=== PATIENT | female | born 1995 | race American Indian/Alaskan Native ===

== ENCOUNTER 2019-10-20 10:39 | Emergency (ER) | payer SELFPAY ==
[2019-10-20 11:54] LABS: Basophils % (Auto) 0.2 % (0.0-1.8); Eosinophils % (Auto) 0.3 % (0.0-4.3); Hematocrit 43.9 % (30.3-42.9); Hemoglobin 14.5 gm/dl (10.1-14.3); Lymphocytes # (Auto) 2.9 K/mm3 (1.2-5.4); Lymphocytes % (Auto) 33.9 % (13.4-35.0); Mean Corpuscular HGB Conc 33 % (30-34); Mean Corpuscular Volume 90 fl (79-97); Monocytes # (Auto) 0.5 K/mm3 (0.0-0.8); Monocytes % (Auto) 5.9 % (0.0-7.3); Platelet Count 258 K/mm3 (140-440); Red Blood Count 4.86 M/mm3 (3.65-5.03); Red Cell Distribution Width 13.5 % (13.2-15.2)
[2019-10-20 12:07] LABS: Bilirubin,Urine NEG (Negative); Blood,Urine SM (Negative); Color,Urine Yellow (Yellow); Mucus,Urine 3+ /HPF
[2019-10-20 12:13] LABS: Alanine Aminotransferase 11 units/L (7-56); Albumin 4.6 g/dL (3.9-5); BUN/Creatinine Ratio 11; Blood Urea Nitrogen 10 mg/dL (7-17); Calcium 9.6 mg/dL (8.4-10.2); Hemolysis Index 3
[2019-10-20] MEDS ORDERED: ONDANSETRON 4 MG/2 ML INJ IV ONE (15:27)
--- NOTE | 2019-10-20 15:27 | Emergency Department Report ---
ED Abdominal Pain HPI - General Chief Complaint: Nausea/Vomiting/Diarrhea Stated Complaint: VOMITTING Time Seen by Provider: 10/20/19 15:21 Source: patient Mode of arrival: Ambulatory Limitations: No Limitations - History of Present Illness Initial Comments: 24-year-old -[place] female presents to the emergency room complaining of right lower quadrant pain with nausea vomiting having sweats and decreased appetite. Patient reports that she is drinking well denies any dysuria denies any vaginal discharge denies any vaginal bleeding. Patient states making worse is nothing making better is nothing. Patient's last menstrual period was 020. Patient does not have a primary care provider. Denies any past medical history currently takes no medications on a daily basis and has no known drug allergies. MD Complaint: abdominal pain Onset/Timin Location: RLQ Radiation: none Migration to: no migration Severity scale (0 -10): 8 Quality: aching Consistency: intermittent Improves With: nothing Worsens With: nothing Associated Symptoms: nausea, vomiting, fever - Related Data LMP Date: 09/10/19 Allergies Allergy/AdvReac Type Severity Reaction Status Date / Time No Known Allergies Allergy Unverified 10/20/19 11:19 ED Review of Systems ROS: Stated complaint: VOMITTING Other details as noted in HPI Comment: All other systems reviewed and negative ED Past Medical Hx - Past Medical History Previous Medical History?: Yes - Surgical History Past Surgical History?: Yes - Social History Smoking Status: Never Smoker Substance Use Type: None ED Physical Exam - General Limitations: No Limitations General appearance: alert, in no apparent distress - Head Head exam: Present: atraumatic, normocephalic - Eye Eye exam: Present: normal appearance - ENT ENT exam: Present: mucous membranes moist - Neck Neck exam: Present: normal inspection, full ROM - Respiratory Respiratory exam: Present: normal lung sounds bilaterally. Absent: respiratory distress - Cardiovascular Cardiovascular Exam: Present: regular rate, normal rhythm. Absent: systolic murmur, diastolic murmur, rubs, gallop - GI/Abdominal GI/Abdominal exam: Present: soft, tenderness (Right lower quadrant), hyperactive bowel sounds. Absent: distended - Extremities Exam Extremities exam: Present: normal inspection, full ROM - Neurological Exam Neurological exam: Present: alert, oriented X3 - Psychiatric Psychiatric exam: Present: normal affect, normal mood - Skin Skin exam: Present: warm, dry, intact, normal color. Absent: rash ED Course Vital Signs 10/20/19 11:10 Temperature 98.6 F Pulse Rate 87 Respiratory 16 Rate Blood Pressure 122/86 O2 Sat by Pulse 96 Oximetry ED Medical Decision Making - Lab Data Result diagrams: 10/20/19 11:35 10/20/19 11:35 - Radiology Data Radiology results: report reviewed Report Referring Physician:MIGUEL BILLPatient Name:ARIES GHOSHPatient ID:[id number] of :[id number]:FemaleAccession:[id number] Date:[id number] Status:Finalized Findings [facility] [address] [place] [address] Cat Scan Report Signed Patient: ARIES GHOSH MR#: [id number] : 1995 Acct:[id number] Age/Sex: 24 / F ADM Date: 10/20/19 Loc: ED Attending Dr: Ordering Physician: SAMM DUCKWORTH Date of Service: 10/20/19 Procedure(s): CT abdomen pelvis w con Accession Number(s): [id number] cc: SAMM DUCKWORTH CT abdomen pelvis w con INDICATION: MAIN: Right lower quadrant pain and tenderness 100cc of omnipaque 300 bolus . TECHNIQUE: All CT scans at this location are performed using CT dose reduction for ALARA by means of automated exposure control. COMPARISON: None available. FINDINGS: Lung bases are clear. Liver, gallbladder, spleen, pancreas, kidneys and adrenals are negative. Abdominal aorta is normal in size. No adenopathy. Pelvis Normal appendix. 1 cm right ovarian cyst. No free fluid. Urinary bladder and distal ureters appear negative. No significant bowel abnormalities. IMPRESSION: 1. No acute abnormalities. 1 cm right ovarian cyst is thought to be within normal limits. Appendix is normal. Signer Name: Darwin Hilliard MD Signed: 10/20/2019 4:32 PM Workstation Name: [id number] Transcribed By: TM Dictated By: Darwin Hilliard MD Electronically Authenticated By: Darwin Hilliard MD Signed Date/Time: 10/20/19 1632 DD/ 1629 TD/TT: - Medical Decision Making 24-year-old -[place] female presents to the emergency room complaining of right lower quadrant pain with nausea vomiting having sweats and decreased appetite. Patient reports that she is drinking well denies any dysuria denies any vaginal discharge denies any vaginal bleeding. Patient states making worse is nothing making better is nothing. Patient's last menstrual period was 09/10/2019. Patient does not have a primary care provider. Denies any past medical history currently takes no medications on a daily basis and has no known drug allergies. CBC CMP lipase urinalysis ordered. CT abdomen with contrast has been ordered. Patient was given Zofran 4 mg IV for nausea. CT scan is negative for any acute findings your urine and blood work are negative for any concerns of infection. I recommend taking some ibuprofen or Tylenol for pain management. And to follow-up with your primary care provider. Please increase your fluid intake advance her diet as tolerated. Critical care attestation.: If time is entered above; I have spent that time in minutes in the direct care of this critically ill patient, excluding procedure time. ED Disposition Clinical Impression: Abdominal pain Qualifiers: Abdominal location: right lower quadrant Qualified Code(s): R10.31 - Right lower quadrant pain Disposition: DC-01 TO HOME OR SELFCARE Is pt being admited?: No Does the pt Need Aspirin: No Condition: Stable Instructions: Acute Abdominal Pain (ED) Additional Instructions: CT scan is negative for any acute findings your urine and blood work are negative for any concerns of infection. I recommend taking some ibuprofen or Tylenol for pain management. And to follow-up with your primary care provider. Please increase your fluid intake advance her diet as tolerated. Referrals: SALAZAR LANE MD [Primary Care Provider] - 3-5 Days [facility] [Provider Group] - 3-5 Days MARY JO TINOCO MD [Staff Physician] - 3-5 Days Forms: Work/School Release Form(ED)
--- NOTE | 2019-10-20 16:36 | Cat Scan Report ---
CT abdomen pelvis w con INDICATION: MAIN: Right lower quadrant pain and tenderness 100cc of omnipaque 300 bolus . TECHNIQUE: All CT scans at this location are performed using CT dose reduction for ALARA by means of automated e xposure control. COMPARISON: None available. FINDINGS: Lung bases are clear. Liver, gallbladder, spleen, pancreas, kidneys and adrenals are negative. Abdomi nal aorta is normal in size. No adenopathy. Pelvis Normal appendix. 1 cm right ovarian cyst. No free fluid. Urinary bladder and distal ureters appear ne gative. No significant bowel abnormalities. IMPRESSION: 1. No acute abnormalities. 1 cm right ovarian cyst is thought to be within normal limits. Appendix is normal. Signer Name: Darwin Hilliard MD Signed: 10/20/2019 4:32 PM Workstation Name: [id number]
[2019-10-20 17:05] VITALS: BP 120/81
== END 2019-10-20 17:04 | disposition home or self-care (01) ==
LOC: ED 10:39
DX: R10.31 Right lower quadrant pain (principal); R11.2 Nausea with vomiting, unspecified; R63.0 Anorexia; Z98.890 Other specified postprocedural states
CPT/HCPCS: 36415; 74177; 80053; 81001; 83690; 84703; 85025; 96374; 99284; J2405; Q9967